=== PATIENT | male | born 1995 | race Caucasian/White ===

== ENCOUNTER 2018-06-30 23:59 | Emergency (ER) | payer OTHER, SELFPAY ==
[2018-07-01] VITALS: BP 120/99; PULSE 81; RESP 16; TEMP 36.2; O2SAT 99; BMI 27.6
--- NOTE | 2018-07-01 00:19 | RAD_ITS ---
STUDY: X-RAY - LEFT WRIST REASON FOR EXAM: Male, 23 years old. Trauma. Wrist pain TECHNIQUE: 3 view(s) of the wrist were obtained. COMPARISON: None. FINDINGS: Displaced fractures of the radius and ulnar styloid. Normal distal radioulnar articulation. Normal carpal bones. Normal carpal articulations. Normal carpometacarpal articulation of the thumb. Normal second through fifth carpometacarpal articulations. Normal visualized metacarpal bones. The soft tissue structures are unremarkable. RAD/Wrist min 3 Views IMPRESSION: Displaced fractures of the radius and ulnar styloid. Electronically Signed: Daysi Reyes, at 1:36 EDT Tel , Service support ,
--- NOTE | 2018-07-01 01:45 | ED.VISSUMM ---
- ER Visit Summary Date of Service: 07/01/18 Chief Complaint: Left wrist pain History of Present Illness: The patient is a 23 M who presents with left wrist pain. He was wrestling with a friend and fell onto an outstretched wrist/hand. This occurred just before presentation. No other injuries. He denies numbness tingling weakness. Physical Examination: Afebrile vitals unremarkable Heart regular Arrest try to stress Patient does have tenderness over the distal left wrist no obvious bony deformity brisk capillary refill normal sensation light touch active full range of motion easily palpable radial pulse Test Results: X-rays of the left wrist were obtained which showed displaced fractures of the distal radius and ulnar styloid. Emergency Department Course and Treatment: Imaging as above. Patient was placed in a wrist splint. He was referred to orthopedics. He was given [place] here for pain as well as a prescription for the same. All questions answered bedside. Patient instructed on supportive care and discharged home. Treatment Plan: [] Disposition: Discharge Impression: Distal radius fracture Ulnar styloid fracture This note was generated with [employer] dictation software. It may contain incorrect words, spelling, and punctuation that were not noted in review of the chart prior to signing ED Disposition - Plan for ED Patient: Referrals: Care Physician,No Primary [Primary Care Provider] -
--- NOTE | 2018-07-01 01:47 | ED.DEP ---
ED Disposition - Plan for ED Patient: Instructions: ED Fx Wrist General Prescriptions: Hydrocodone Bitart/Apap 5-325 [[place] 5MG-325MG] 1 tab PO Q6H PRN PRN 3 Days #12 tab PRN Reason: Pain Referrals: Care Physician,No Primary [Primary Care Provider] - Nash Sims MD [STAFF PHYSICIAN] -
[2018-07-01] MEDS: HYDROcodone Bitartrate/Apap 5/325 Tablet PO (02:02)
[2018-07-01 02:05] VITALS: BP 110/80; PULSE 79; RESP 16; O2SAT 100
== END 2018-07-01 02:05 | disposition home or self-care (01) ==
LOC: ED 07-01 00:40
PROVIDERS: Emergency Provider Emergency Medicine
DX: S52.512A Displaced fracture of left radial styloid process, initial encounter for closed fracture (principal); S52.612A Displaced fracture of left ulna styloid process, initial encounter for closed fracture; W19.XXXA Unspecified fall, initial encounter; Y92.9 Unspecified place or not applicable; Y99.9 Unspecified external cause status; E10.9 Type 1 diabetes mellitus without complications
CPT/HCPCS: 73110; 99283

== ENCOUNTER → 2020-12-25 09:51 | Outpatient (CLI) | payer BC, SELFPAY ==
[2020-12-25 12:43] LABS: ALB/GLOB Ratio 1.2 RATIO (0.9-2.4); AST(SGOT) 13 U/L (15-37); Alanine Aminotransfer ALT/SGPT 45 U/L (16-61); Albumin, Serum 4.3 g/dL (3.2-5.0); Alkaline Phosphatase 146 U/L (45-117); Anion Gap 8 (5-15); BUN 19 mg/dL (7-18); BUN/Creat Ratio 18.1 RATIO (10-20); Calcium,Total 9.6 mg/dL (8.5-10.1); Chloride 97 mmol/L (98-107); Creatinine, Serum 1.05 mg/dL (0.70-1.30); EST Glomerular Filtration Rate 91 mL/min (>60); Est Glom Filt Rate - Afr Amer 110 mL/min (>60); Globulin 3.5 g/dL (2.2-4.2); Glucose 265 mg/dL (74-106); Potassium 3.8 mmol/L (3.5-5.1); Protein, Total 7.8 g/dL (6.4-8.2); Sodium Level 135 mmol/L (136-145); Thyroid Stim Hormone (TSH) 1.55 uIU/mL (0.358-3.74)
[2020-12-26 13:37] LABS: Thyroid Peroxidase AB < 8 IU/mL (0-34)
== END ==
PROVIDERS: Visit Provider Internal Medicine Endocrinology, Diabetes & Metabolism
DX: E11.9 Type 2 diabetes mellitus without complications (principal)
CPT/HCPCS: 36415; 80053; 84443; 86376

== ENCOUNTER → 2022-05-26 | Outpatient (CLI) | payer OTHER, SELFPAY ==
[2022-05-26 10:59] LABS: Vitamin D,25 Hydroxy 29.2 ng/mL
[2022-05-26 11:00] LABS: Microalbumin,Random Urine 11.5 mg/L (NO RANGE EST.); Microalbumin:Creatinine Ratio 22.1 mg/g CRE (<30 mg/g CRE)
[2022-05-26 11:07] LABS: ALB/GLOB Ratio 1.3 RATIO (0.9-2.4); AST(SGOT) 20 U/L (15-37); Alanine Aminotransfer ALT/SGPT 42 U/L (16-61); Albumin, Serum 4.4 g/dL (3.2-5.0); Alkaline Phosphatase 105 U/L (45-117); Anion Gap 5 (5-15); BUN 10 mg/dL (7-18); BUN/Creat Ratio 8.8 RATIO (10-20); Calcium,Total 9.5 mg/dL (8.5-10.1); Chloride 101 mmol/L (98-107); Cholesterol 182 mg/dL (200); Creatinine, Serum 1.14 mg/dL (0.70-1.30); EST Glomerular Filtration Rate 82 mL/min (>60); Est Glom Filt Rate - Afr Amer 99 mL/min (>60); Globulin 3.5 g/dL (2.2-4.2); Glucose 271 mg/dL (74-106); High Density Lipoprotein 55 mg/dL; Potassium 4.1 mmol/L (3.5-5.1); Protein, Total 7.9 g/dL (6.4-8.2); Sodium Level 134 mmol/L (136-145); Thyroid Stim Hormone (TSH) 1.55 uIU/mL (0.358-3.74); Triglycerides 63 mg/dL; Very Low Density Lipoprotein 13 mg/dL (5-40)
== END | disposition home or self-care (01) ==
LOC: LAB 10:00
PROVIDERS: Referring Provider Nurse Practitioner Family; Visit Provider Nurse Practitioner Family
DX: E10.65 Type 1 diabetes mellitus with hyperglycemia (principal)
CPT/HCPCS: 36415; 80053; 80061; 82043; 82306; 82570; 84443